=== PATIENT | female | born 1950 | race Caucasian/White ===

== ENCOUNTER → 2016-12-26 | Outpatient (CLI) | payer MEDICARE, OTHER ==
[~2016-12-26] MED LIST: ALBUTEROL0.09 MG/A1 INH; ASPIR LOW81 MG PO; ASPIRIN325 MG PO; BUMEX1 MG PO; BUMEX2 MG; BUPROPION ER100 M1 PO; CALCIUM 600600 M2 PO; DEMADEX20 M1 PO; FLEXERIL10 MG PO; FLUNISOLID0.025 MG/A NAS; IMDUR SA60 M1 PO; IMDUR30 MG; K-Dur 20MEQ20 MEQ; KEFLEX500 M1 PO; KEFLEX500 MG PO; LEXAPRO10 MG PO; LIPITOR80 MG; LISINOPRIL10 M1 PO; LISINOPRIL5 MG; LOPRESSOR25 MG PO; MELATONIN1 MG PO; MELATONIN3 M1 PO; MOTRIN800 MG PO; MUCINEX1200 M1 PO; NITROSTAT0.4 MG; OXYGEN NAS; PLAVIX75 MG; POTASSIUM20 MEQ PO; PREDNISONE10 MG PO; PREVACID30 M1; PROPRANOLOL HCL20 M1 PO; TOPROL XL25 MG; TRAZODONE100 MG PO; VITAMIN C500 MG; VITAMIN D1000 IU; XANAX0.5 MG; ZOCOR40 MG PO; [UNRECOGNIZED DRUG - OTHER] PO
== END | disposition home or self-care (01) ==
LOC: CARD 15:53
DX: R60.0 Localized edema (principal)

== ENCOUNTER 2017-01-11 13:13 | Emergency (ER) | payer MEDICARE, OTHER ==
[~2017-01-11] VITALS: Ht 157.4 cm; Wt 99.8 kg
== END 2017-01-11 14:51 | disposition home or self-care (01) ==
LOC: ED 13:13
DX: R04.0 Epistaxis (principal); Z98.890 Other specified postprocedural states; Z90.89 Acquired absence of other organs; Z79.82 Long term (current) use of aspirin; Z88.0 Allergy status to penicillin; Z88.2 Allergy status to sulfonamides; Z88.3 Allergy status to other anti-infective agents; Z88.1 Allergy status to other antibiotic agents; Z99.81 Dependence on supplemental oxygen

== ENCOUNTER → 2017-02-16 | Day surgery (SDC) | payer MEDICARE, OTHER ==
[~2017-02-16] VITALS: Ht 157.4 cm; Wt 102.1 kg
--- NOTE | ~2017-02-16 | O ---
[place], [place] OPERATIVE NOTE NAME: ALEE PABLO UNIT #: [id number] ROOM: DOCTOR: WYATT FELTON MD BIRTHDATE: [birth year] DOS: 02/16/2017 HISTORY OF PRESENT ILLNESS: The patient has presented with chief complaint of dysphagia, dyspepsia, undergoing investigation. ALLERGIES: CIPROFLOXACIN, PENICILLIN, ERYTHROMYCIN, VIBRAMYCIN, SULFA. PAST MEDICAL HISTORY: COPD, hypertension, hypercholesterolemia. PAST SURGICAL HISTORY: Cardiac catheterization x 2. PROCEDURE: Today's procedure, part of investigation is panendoscopy plus biopsy plus balloon dilation of esophagus. PREMEDICATION: Versed and Diprivan. SCOPE: Olympus forward-viewing gastroscope Q10 video. REPORT: After putting the patient in the left lateral position and after application of lubricant to the scope, the scope was introduced; thereafter, under direct visualization advanced to the length of esophagus without difficulty. Gastric pouch was entered. Duodenal bulb, second and third part within normal limit. Antritis and gastritis were noticed. Antrum was biopsied for H. pylori. Scope was withdrawn. A balloon size 20 was introduced into the gastric pouch and orally extracted. Minimal resistance was noticed. The patient tolerated the procedure well. IMPRESSION: Benign mild stricture of esophagus, status post balloon dilation to size 20; gastritis, status post biopsy. PLAN AND DISCUSSION: We are going to continue with Protonix 40 mg daily. Elevation of the head of the bed 6 inches all time. Abstinence from solid food ingestion 5 hours prior to retiring. Followup routinely with you in office, p.r.n. visit with us in GI Clinic, p.r.n. routine followup with you in office. I thank you very much again for your kind referral. [place], [place] OPERATIVE NOTE NAME: ALEE PABLO UNIT #: [id number] ROOM: DOCTOR: WYATT FELTON MD BIRTHDATE: [birth year] WYATT FELTON MD CM:OPRECORD:OPERATIVE NOTE [id number] CHRISTIE FELTON MD 02/16/17 5019 interface
[2017-02-16 11:20] VITALS: BP 129/75
[2017-02-16 12:05] VITALS: BP 102/46
[2017-02-16 12:20] VITALS: BP 113/48
[2017-02-16 12:35] VITALS: BP 118/77
== END | disposition home or self-care (01) ==
LOC: SDC 02-13 08:00
DX: K22.2 Esophageal obstruction (principal); K29.50 Unspecified chronic gastritis without bleeding; J44.9 Chronic obstructive pulmonary disease, unspecified; E78.00 Pure hypercholesterolemia, unspecified; I25.2 Old myocardial infarction; I10 Essential (primary) hypertension; I25.10 Atherosclerotic heart disease of native coronary artery without angina pectoris; Z95.818 Presence of other cardiac implants and grafts; Z83.3 Family history of diabetes mellitus; Z82.49 Family history of ischemic heart disease and other diseases of the circulatory system; Z98.890 Other specified postprocedural states

== ENCOUNTER → 2017-03-07 | Outpatient (CLI) | payer MEDICARE, OTHER ==
[~2017-03-07] MED LIST changes: +OMEPRAZOLE D/R20 MG PO; +SPIRIVA -- 3018 MCG INH
[2017-03-07 11:27] LABS: BASO % 0.6 % (0.0-1.0); EOS # 0.1 10*3/uL (0.0-0.4); EOS % 1.7 % (1.0-4.0); HEMATOCRIT 36.6 % (37.0-47.0); HEMOGLOBIN 11.8 g/dl (12.0-16.0); LYMPH # 2.5 10*3/uL (1.3-4.4); LYMPH % 33.7 % (27.0-41.0); MEAN CELL VOLUME 96.6 fl (81.0-99.0); MEAN CORPUSCULAR HGB 31.1 pg (27.0-31.0); MEAN CORPUSCULAR HGB CONC 32.2 g/dl (33.0-37.0); MONO # 0.7 10*3/uL (0.1-1.0); MONO % 9.9 % (3.0-9.0); NEUT # 3.9 10*3/uL (2.3-7.9); NEUT % 53.5 % (47.0-73.0); PLATELET COUNT AUTOMATED 181 10*3/uL (130-400); RED BLOOD COUNT 3.79 10*6/uL (4.10-5.10); RED CELL DISTRI WIDTH 13.3 % (0-14.5); WHITE BLOOD COUNT 7.3 10*3/uL (4.8-10.8)
[2017-03-07 11:49] LABS: INTERNATIONAL NORM RATIO 0.9 (2.0-3.5); PROTHROMBIN TIME 9.8 SECONDS (9.0-12.4)
== END | disposition home or self-care (01) ==
LOC: LAB 10:10
PROVIDERS: Specialist
DX: R04.0 Epistaxis (principal)

== ENCOUNTER → 2017-03-13 | Day surgery (SDC) | payer MEDICARE, OTHER ==
[2017-03-07 10:28] VITALS: BP 141/71
[~2017-03-13] VITALS: Ht 157.4 cm; Wt 102.1 kg
[~2017-03-13] MED LIST changes: +OCEAN104 ML NAS
--- NOTE | ~2017-03-13 | ZIPNASCAUT ---
[place], [place] ENDONASAL CAUTERY NAME: ALEE PABLO [facility] #: [id number] UNIT #: [id number] ROOM: DOCTOR: GABRIEL RUSSELL MD BIRTHDATE: [birth year] DATE: 03/13/17 PREOPERATIVE DIAGNOSIS: Recurrent right-sided epistaxis. POSTOPERATIVE DIAGNOSIS: Same. OPERATION: Right endonasal cautery. SURGEON: Dr. Russell. ANESTHESIA: General. HISTORY: Patient is taken to the operating room for control of epistaxis which was recurrent on the right side. OPERATIVE FINDINGS AND PROCEDURE: Following induction of general anesthesia, the patient was positioned supine on the OR table, prepped and draped in a standard sterile fashion. Examination of the right intranasal region showed hypervascularity of the right anterior septal region. This area was thermally cauterized using electrical cautery. The patient tolerate procedure well. The patient was awakened, extubated and transported to PACU in satisfactory condition. GABRIEL BALES MD CM:OPRECORD:ENDONASAL CAUTERY 5 5 GABRIEL RUSSELL MD 03/21/1747 KARYNA HUGHES.R
[2017-03-13 09:42] VITALS: BP 146/79
[2017-03-13 10:14] VITALS: BP 122/65
[2017-03-13 10:30] VITALS: BP 160/82
[2017-03-13 10:45] VITALS: BP 129/60
[2017-03-13 11:00] VITALS: BP 137/51
[2017-03-13 11:13] VITALS: BP 131/55
== END | disposition home or self-care (01) ==
LOC: SDC 03-07 10:15
DX: R04.0 Epistaxis (principal); J44.9 Chronic obstructive pulmonary disease, unspecified; I25.2 Old myocardial infarction; K21.9 Gastro-esophageal reflux disease without esophagitis; F32.9 Major depressive disorder, single episode, unspecified; I11.0 Hypertensive heart disease with heart failure; I50.9 Heart failure, unspecified; F41.9 Anxiety disorder, unspecified; E78.00 Pure hypercholesterolemia, unspecified; Z95.5 Presence of coronary angioplasty implant and graft; Z79.82 Long term (current) use of aspirin; Z79.899 Other long term (current) drug therapy; Z98.890 Other specified postprocedural states; Z88.0 Allergy status to penicillin; Z88.1 Allergy status to other antibiotic agents; Z88.2 Allergy status to sulfonamides; Z88.8 Allergy status to other drugs, medicaments and biological substances; Z82.49 Family history of ischemic heart disease and other diseases of the circulatory system

== ENCOUNTER → 2017-05-25 | Outpatient (CLI) | payer MEDICARE, OTHER ==
[2017-05-25 11:13] LABS: CREATININE 1.12 mg/dL (0.55-1.02)
== END | disposition home or self-care (01) ==
LOC: LAB 09:40 → CT 11:00
PROVIDERS: Radiology Diagnostic Radiology
DX: I71.9 Aortic aneurysm of unspecified site, without rupture (principal); K76.0 Fatty (change of) liver, not elsewhere classified; K22.8 Other specified diseases of esophagus

== ENCOUNTER → 2017-06-06 | Outpatient (CLI) | payer MEDICARE, OTHER | END | disposition home or self-care (01) | LOC: US 02:12 | DX: I71.4 Abdominal aortic aneurysm, without rupture (principal); Z87.891 Personal history of nicotine dependence ==

== ENCOUNTER → 2017-06-12 | Day surgery (SDC) | payer MEDICARE, OTHER ==
[~2017-06-12] VITALS: Ht 157.4 cm; Wt 103.4 kg
[~2017-06-12] MED LIST changes: +OMEPRAZOLE40 MG PO; -POTASSIUM20 MEQ PO; +POTASSIUM99 M5 PO; +TOPROL XL25 MG PO
[2017-06-12 07:30] VITALS: BP 153/81
[2017-06-12 09:10] VITALS: BP 123/61
[2017-06-12 09:25] VITALS: BP 134/71
[2017-06-12 09:37] VITALS: BP 142/70
== END ==
LOC: SDC 06-08 10:15
DX: K29.50 Unspecified chronic gastritis without bleeding (principal); I25.2 Old myocardial infarction; I11.0 Hypertensive heart disease with heart failure; J44.9 Chronic obstructive pulmonary disease, unspecified; E78.00 Pure hypercholesterolemia, unspecified; K21.9 Gastro-esophageal reflux disease without esophagitis; I50.9 Heart failure, unspecified; Z98.890 Other specified postprocedural states; Z95.5 Presence of coronary angioplasty implant and graft; Z82.49 Family history of ischemic heart disease and other diseases of the circulatory system

== ENCOUNTER → 2017-09-06 | Outpatient (CLI) | payer MEDICARE, OTHER ==
--- NOTE | ~2017-09-06 | SLPIE ---
[place], [place] PARKING LOT SIGNALER INITIAL EVALUATION NAME: ALEE PABLO UNIT #: [id number] ROOM: DOCTOR: CHRISTIE FOWLER CNP Speech Language Pathology Initial Evaluation Page 1 1 of Patient Name: ALEE PABLO Date: 09/06/2017 10:44 AM : 1950 SOC Date: 09/06/2017 [facility]: [facility] Provider #: [id number] Treating Clinician: DEVAN Turner-PARKING LOT SIGNALER Referring Physician: CHRISTIE FOWLER Patient Information Address: [address] [place] [address] Physician: CHRISTIE FOWLER Physician #: City, [facility], Zip: [place], [place] [address] Occupation: Unknown # of Approved Visits: 0 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 Please see Dapper for details. Rehabilitation Information / History Clinical Findings Functional Goals Functional Limitation Reporting Swallowing G8996 - Swallowing functional limitation, current status at therapy episode outset and at reporting intervals Current Status: CH - 0 percent impaired, limited or restricted G8997 - Swallowing functional limitation, projected goal status, at therapy episode outset, at reporting intervals, and at discharge or to end reporting Goal Status: CH - 0 percent impaired, limited or restricted G8998 - Swallowing functional limitation, discharge status, at discharge from therapy or to end reporting Discharge Status: CH - 0 percent impaired, limited or restricted 09/06/2017 3:21:10 PM DEVAN Turner-PARKING LOT SIGNALER Date/Time [place], [place] PARKING LOT SIGNALER INITIAL EVALUATION NAME: ALEE PABLO UNIT #: [id number] ROOM: DOCTOR: CHRISTIE FOWLER CNP State License #: [id number] CM:SLPIE 152 IS THERAPY [facility]
--- NOTE | ~2017-09-06 | SLPPOC ---
[place], [place] MOLD CLOSER PLAN OF CARE NAME: ALEE PABLO UNIT #: [id number] ROOM: DOCTOR: CHRISTIE FOWLER CNP Speech Language Pathology Plan of Care Page 1 1 (Initial Evaluation) of Patient Name: ALEE PABLO Date: 09/06/2017 10:44 AM : 1950 SOC Date: 09/06/2017 Provider: [facility] Provider #: [id number] Treating Clinician: DEVAN Turner-MOLD CLOSER Referring Physician: CHRISTIE FOWLER Medicare #: 1 [id number] Visits From SOC: Onset Date Description Code Primary Diagnosis: 09/06/2017 A000.00 DIAGNOSIS FROM INTERFACE NOT FOUND IN [facility] TABLE Subjective Comments: Initial evaluation created to initiate the electronic medical record. Please see imageloop for details. Initial Level Goals Functional Limitation Reporting Swallowing G8996 - Swallowing functional limitation, current status at therapy episode outset and at reporting intervals Current Status: CH - 0 percent impaired, limited or restricted G8997 - Swallowing functional limitation, projected goal status, at therapy episode outset, at reporting intervals, and at discharge or to end reporting Goal Status: CH - 0 percent impaired, limited or restricted G8998 - Swallowing functional limitation, discharge status, at discharge from therapy or to end reporting Discharge Status: CH - 0 percent impaired, limited or restricted 09/06/2017 3:21:10 PM CHRISTIE FOWLER Date/Time MAYRA Turner Date I certify the need for these services furnished under this plan of treatment while under my care. State License #: [id number] CM:SLPPOC [id number] IS THERAPY [place]
--- NOTE | ~2017-09-06 | PROC NOTE ---
[place], [place] PROCEDURE NOTE NAME: ALEE PABLO UNIT #: [id number] ROOM: DOCTOR: ELENA HARRINGTON BIRTHDATE: [birth year] DOS: 09/06/2017 ORDERING PHYSICIAN: Cate Roa NP. RADIOLOGIST: Dr. Petersen. BACKGROUND INFORMATION: The patient, a 67-year-old female, was seen for modified barium swallow. This test was ordered to view the pharyngeal phase of the swallow. The patient was alert and able to report her case history information. She reported that at times she feels that she has to concentrate to swallow in order to bring on the swallow. She reported her medical history significant for ND occurring in 2007, AAA, spots on the liver, lung nodules and COPD. The patient is oxygen dependent. She receives a regular diet and thin liquid. Oral peripheral examination revealed presence of top denture with adequate fit reported. She did display natural teeth on the bottom. Lingual, labial, buccal and laryngeal skills were within normal limits in terms of strength, range of motion, and coordination. METHODS AND MATERIALS USED FOR THE EXAM: The patient was positioned in the lateral plane and the examination was viewed under fluoroscopy. The patient was presented with a variety of consistencies to assess swallowing skills including applesauce mixed with barium presented in half teaspoon amounts, barium-coated cookie and bread given in bite size pieces and thin liquid barium taken by cup and barium pill to assess pill swallowing. ORAL PHASE: Unremarkable. PHARYNGEAL PHASE: Unremarkable. ESOPHAGEAL PHASE: This phase of the swallow was not formally assessed during this examination. Please refer to upper gastrointestinal completed earlier this date for further information. IMPRESSIONS AND RECOMMENDATIONS: Based upon assessment results, this 67-year-old patient presents with oral and pharyngeal swallowing skills that are within normal limits. No penetration, aspiration or residue occurred. Recommend the patient remain on present diet with use of safe swallow strategies such as alternating liquids and solids and consumption of small bites and sips. Follow up therapy is not warranted at this time. Results and recommendations were shared with the patient who verbalized understanding and agreement. Thank you very much for this referral. Should you have any questions regarding this patient, please contact the speech pathologist at [phone]. [place], [place] PROCEDURE NOTE NAME: ALEE PABLO UNIT #: [id number] ROOM: DOCTOR: ELENA HARRINGTON BIRTHDATE: [birth year] ELEAN HARRINGTON CM:PROCNOTE:PROCEDURE NOTE 1447 0002 ELENA HARRINGTON
--- NOTE | ~2017-09-06 | SLPPN ---
[place], [place] STUDENT SUPPORT COUNSELOR PROGRESS NOTE NAME: ALEE PABLO UNIT #: [id number] ROOM: DOCTOR: CHRISTIE FOWLER CNP Speech Language Pathology Treatment Note Page 1 1 of Patient Name: ALEE PABLO Date: 09/06/2017 11:00 AM : 1950 SOC Date: 09/06/2017 Provider: [facility] Provider #: [id number] Treating Clinician: DEVAN Turner-STUDENT SUPPORT COUNSELOR Referring Physician: CHRISTIE FOWLER Onset Date Description Code Primary Diagnosis: 09/06/2017 A000.00 DIAGNOSIS FROM INTERFACE NOT FOUND IN [facility] TABLE Time In: 10:00 AM Time Out: 11:00 AM STUDENT SUPPORT COUNSELOR Interventions and CPT Codes Consisted of: CPT Code Modifiers Minutes Units MOTION FLUOROSCOPY/SWALLOW 35402 60 1 Total Minutes: 60 Total Timed Minutes: 0 Total Untimed Minutes: 60 Total Units: 1 Total Timed Units: 0 Total Untimed Units: 1 09/06/2017 3:26:58 PM DEVAN Turner-KASSANDRA Date/Time State License #: [id number] CM:KASSANDRAPN 1530 1529 IS THERAPY [place]
--- NOTE | 2017-09-06 10:46 | NUR ---
SPEECH PATHOLOGY Modified barium swallow completed as per orders. Patient was alert and cooperative and reported hx significant for OR (2008), AAA, lung nodules and COPD. Patient is O2 dependent. She reported that at times she has to concentrate to swallow. Patient just completed an upper GI. Results of the study revealed oral and pharyngeal swallowing skills WNL. No penetration, aspiration or residue occurred. Recommend she remain on present diet with use of safe swallow strategies such as alternating liquids and solids and consumption of small bites and sips. Follow up t herapy is not warranted at this time. Results and migel. were shared with patient and she verbalized understanding and agreement. Dictaed report to follow. Thank you for this referral. ELENA HARRINGTON MSCCC-BOW MAKER PRODUCTION
== END | disposition home or self-care (01) ==
LOC: RAD 09:00 → RAD/SH 09:13
DX: K29.70 Gastritis, unspecified, without bleeding (principal)

== ENCOUNTER 2020-06-09 08:50 | Emergency (ER) | payer MEDICARE, OTHER ==
[~2020-06-09] VITALS: Ht 157.4 cm; Wt 108.9 kg
[2020-06-09 09:36] LABS: BASO % 0.2 % (0.0-1.0); EOS % 0.2 % (1.0-4.0); HEMATOCRIT 41.8 % (37.0-47.0); LYMPH # 0.6 10*3/uL (1.3-4.4); LYMPH % 7.7 % (27.0-41.0); MEAN CORPUSCULAR HGB 30.6 pg (27.0-31.0); MEAN CORPUSCULAR HGB CONC 32.3 g/dl (33.0-37.0); MEAN PLATELET VOLUME 9.2 fl (9.6-12.3); MONO # 0.5 10*3/uL (0.1-1.0); NEUT % 85.2 % (47.0-73.0); PLATELET COUNT AUTOMATED 178 10*3/uL (130-400); RED BLOOD COUNT 4.41 10*6/uL (4.10-5.10); RED CELL DISTRI WIDTH 13.6 % (0-14.5); WHITE BLOOD COUNT 8.2 10*3/uL (4.8-10.8)
[2020-06-09 09:40] LABS: ALBUMIN 3.9 gm/dl (3.1-4.5); CREATININE 1.37 mg/dL (0.55-1.02); POTASSIUM 3.9 mmol/L (3.5-5.1); TOTAL PROTEIN 7.8 gm/dL (6.4-8.2)
[2020-06-09 09:44] LABS: INTERNATIONAL NORM RATIO 0.9 (2.0-3.5)
[2020-06-09 09:47] LABS: TROPONIN I 0.338 ng/ml (<0.045)
[2020-06-09 09:55] LABS: MEAN CELL VOLUME 94.8 fl (81.0-99.0)
[2020-06-09 10:33] LABS: BILIRUBIN NEGATIVE; BLOOD NEGATIVE (NEGATIVE); CLARITY CLEAR (CLEAR); COLOR YELLOW (YELLOW); GLUCOSE NEGATIVE; KETONE NEGATIVE; LEUKO ESTERASE NEGATIVE (NEGATIVE); NITRITE NEGATIVE (NEGATIVE); SPECIFIC GRAVITY < 1.005 (1.001-1.030); UROBILINOGEN 0.2 E.U./dl (0.0-1.0)
[2020-06-09 12:30] LABS: TROPONIN I 0.709 ng/ml (<0.045)
== END 2020-06-09 13:31 | disposition short-term general hospital (02) ==
LOC: ED 08:50
PROVIDERS: Emergency Medicine; Physician Assistant
DX: I21.4 Non-ST elevation (NSTEMI) myocardial infarction (principal); Z88.0 Allergy status to penicillin; Z88.2 Allergy status to sulfonamides; Z88.1 Allergy status to other antibiotic agents; Z88.8 Allergy status to other drugs, medicaments and biological substances; Z79.899 Other long term (current) drug therapy; Z79.82 Long term (current) use of aspirin

== ENCOUNTER → 2020-07-09 | Outpatient (CLI) | payer MEDICARE, OTHER | END | disposition home or self-care (01) | LOC: US 11:00 | PROVIDERS: ATTEND Nurse Practitioner Family | DX: I21.4 Non-ST elevation (NSTEMI) myocardial infarction (principal); N17.9 Acute kidney failure, unspecified; I71.4 Abdominal aortic aneurysm, without rupture; Z79.899 Other long term (current) drug therapy ==

== ENCOUNTER 2020-08-25 15:14 | Inpatient (IN) | payer MEDICARE, OTHER ==
[~2020-08-25] VITALS: Ht 157.4 cm; Wt 102.3 kg
[2020-08-25] VITALS (14 sets, daily range): BP systolic 97–143; BP diastolic 23–68
[2020-08-25 16:06] LABS: BASO % 0.3 % (0.0-1.0); EOS % 0.6 % (1.0-4.0); LYMPH # 1.2 10*3/uL (1.3-4.4); LYMPH % 35.8 % (27.0-41.0); MEAN CELL VOLUME 96.3 fl (81.0-99.0); MEAN CORPUSCULAR HGB 30.6 pg (27.0-31.0); MEAN CORPUSCULAR HGB CONC 31.8 g/dl (33.0-37.0); MONO # 0.4 10*3/uL (0.1-1.0); MONO % 11.9 % (3.0-9.0); NEUT # 1.7 10*3/uL (2.3-7.9); NEUT % 51.1 % (47.0-73.0); PLATELET COUNT AUTOMATED 127 10*3/uL (130-400); RED BLOOD COUNT 4.05 10*6/uL (4.10-5.10); RED CELL DISTRI WIDTH 13.9 % (0-14.5); WHITE BLOOD COUNT 3.4 10*3/uL (4.8-10.8)
[2020-08-25 16:27] LABS: ALBUMIN 3.9 gm/dl (3.1-4.5); CREATININE 1.38 mg/dL (0.55-1.02); POTASSIUM 3.4 mmol/L (3.5-5.1); TOTAL PROTEIN 7.7 gm/dL (6.4-8.2)
[2020-08-25 18:01] LABS: ABG BASE EXCESS -0.4 mmol/L (-2.0-2.0); ARTERIAL BLOOD GAS PH 7.392 (7.35-7.45)
[2020-08-25 18:07] LABS: CPK 116 U/L (26-192); LDH 232 U/L (84-246)
[2020-08-26] VITALS (7 sets, daily range): BP systolic 130–156; BP diastolic 64–84
--- NOTE | 2020-08-26 03:15 | NUR ---
REPORT RECEIVED FROM JUAN M RIOJAS AT THIS TIME.
[2020-08-26 05:59] LABS: ALBUMIN 3.6 gm/dl (3.1-4.5); CREATININE 1.15 mg/dL (0.55-1.02); TOTAL PROTEIN 7.8 gm/dL (6.4-8.2)
[2020-08-26 06:02] LABS: POTASSIUM 4.6 mmol/L (3.5-5.1)
[2020-08-26 06:14] LABS: HEMATOCRIT 37.4 % (37.0-47.0); MEAN CELL VOLUME 95.9 fl (81.0-99.0); MEAN CORPUSCULAR HGB 31.3 pg (27.0-31.0); MEAN CORPUSCULAR HGB CONC 32.6 g/dl (33.0-37.0); MEAN PLATELET VOLUME 9.7 fl (9.6-12.3); PLATELET COUNT AUTOMATED 145 10*3/uL (130-400)
[2020-08-26 06:21] LABS: WHITE BLOOD COUNT 1.3 10*3/uL (4.8-10.8)
[2020-08-26 06:58] LABS: ATYPICAL LYMPHS 1 % (0-0); PLATELET SUFFICIENCY NORMAL (NORMAL); TOTAL CELLS COUNTED 100 #CELLS
--- NOTE | 2020-08-26 07:40 | NUR ---
PT RESTING WITH EYES CLOSED, SEE VITAL FOR MORE DETAILS, RUNNING BREAKFAST TRAY WILL BE ORDERED.
--- NOTE | 2020-08-26 08:30 | NUR ---
PT IS WAKE AND HAS NO CONPLAINTS. FREAS WATER, LINES, TOOTH BRUSH WITH PASTE, BODY WASH ECT ALL PROVIDED.
--- NOTE | 2020-08-26 11:30 | NUR ---
PT PULLED OUT IV, NEW IV ESTABLISED IN THE JAY .
--- NOTE | 2020-08-26 12:41 | NUR ---
DR ABREU TO ER TO ROUND ON IN PT'S, NOTIFIED OF PT REQUEST FOR SLEEPING PILL AND ANXIETY MEDICATION.
--- NOTE | 2020-08-26 13:31 | NUR ---
REPORT RECIEVED FROM CAMILLA MCGOWAN
--- NOTE | 2020-08-26 16:59 | NUR ---
PT IN BED STATES SHE IS FEELING ANXIOUS PT HAS STANDING PRN ORDER FOR XANAX
--- NOTE | 2020-08-26 22:00 | NUR ---
A 70, admitted to , under the services of JENNIFER Busby DO with a diagnosis of CHF, SUSPECTED COVID. Chief complaint is DIARRHEA, HEADACHE, COUGH, SHORTNESS OF BREATH X1 WEEK. Patient arrived via bed from ER. Monitor applied. Initial assessment completed. Vital signs taken and recorded. JENNIFER BUSBY DO notified of admission to the unit. Orders received. See assessment for past medical history, medications and allergies. Patient and/or family oriented to unit. [address] visitation policy reviewed. Clothing/patient valuable form completed. IRIS ALMAGUER
--- NOTE | 2020-08-26 23:15 | NUR ---
SPOKE WITH DR. NGUYEN ABOUT SWITCHING RESTORIL TO PATIENTS TRAZADONE. THAT WAS THE ONLY MEDICATION THAT THE PATIENT WAS SURE ABOUT. DISCUSSED THIS WITH DR. NGUYEN AND NOTIFIED HIM THAT THE PATIENT STATED WE SHOULD BE ABLE TO GET THE FULL MED LIST FROM [facility] TOMORROW. ALSO NOTIFIED HIM THAT THE PATIENT STATED THAT HER LASIX WOULD BE DISCONTINUED PER ANOTHER DOCTOR. HE STATED HE WILL DISCUSS THAT WITH THE DAYTIME DOCTORS.
--- NOTE | 2020-08-27 02:22 | NUR ---
24 HR chart check completed.
--- NOTE | 2020-08-27 06:23 | NUR ---
DR. NGUYEN NOTIFIED OF PATIENTS EXERTIONAL TACHYCARDIA OF 140'S-150'S
[2020-08-27 06:37] LABS: BASO % 0.3 % (0.0-1.0); EOS % 0.3 % (1.0-4.0); HEMATOCRIT 37.8 % (37.0-47.0); LYMPH % 32.7 % (27.0-41.0); MEAN CELL VOLUME 95.9 fl (81.0-99.0); MEAN CORPUSCULAR HGB 30.7 pg (27.0-31.0); MEAN PLATELET VOLUME 9.6 fl (9.6-12.3); MONO # 0.5 10*3/uL (0.1-1.0); MONO % 15.4 % (3.0-9.0); NEUT # 1.6 10*3/uL (2.3-7.9); NEUT % 50.7 % (47.0-73.0); PLATELET COUNT AUTOMATED 164 10*3/uL (130-400); RED BLOOD COUNT 3.94 10*6/uL (4.10-5.10); WHITE BLOOD COUNT 3.1 10*3/uL (4.8-10.8)
[2020-08-27 06:55] LABS: ALBUMIN 3.6 gm/dl (3.1-4.5); CREATININE 1.23 mg/dL (0.55-1.02); POTASSIUM 3.7 mmol/L (3.5-5.1); TOTAL PROTEIN 7.4 gm/dL (6.4-8.2)
[2020-08-27 08:00] VITALS: BP 127/58
--- NOTE | 2020-08-27 09:15 | NUR ---
Attempted to reach patient via phone with no success. Reached out to , [facility]. Patient states lives at home with her . There are 0 steps in the home. Physician: Cate Rao Pharmacy: [facility] Home health services: none Patient's level of ADLs: INDEPENDENT Patient has working utilities: yes DME: O2 @ 3L nc, portable O2 tanks, nebulizer, O2 supplier [employer], life vest Follow-up physician's appointment after d/c: will be made by the hospitalist nurse director upon discharge Does patient want to access PORTAL?: no Discharge plan discussed with . Patient lives at home with him. She is normally independent in her ADLs and ambulation. Discussed short term rehab and he declines. Discussed home health care services and he declines at this time. He would like to see how she progresses while in the hospital. When medically stable she will be discharged to home. He states he will provide transportation on discharge. SHINE CRAWFORD
[2020-08-27] MEDS ORDERED: VITAMIN B122500 MCG PO (09:43)
[2020-08-27] MEDS ORDERED: VENTOLIN 02.5 MG/3 M INH (09:44)
[2020-08-27] MEDS ORDERED: VITAMIN D3125 MC1 PO (09:44)
[2020-08-27] MEDS ORDERED: PROTONIX40 MG PO (09:45)
[2020-08-27] MEDS ORDERED: MELATONIN3 MG PO (09:45)
[2020-08-27] MEDS ORDERED: ISOSORBIDE30 MG PO (09:46)
[2020-08-27] MEDS ORDERED: HYDROXYZINE HCL25 MG PO (09:46)
[2020-08-27] MEDS ORDERED: POTASSIUM CHLO20 ME3 PO (09:46)
[2020-08-27] MEDS ORDERED: ZOCOR80 MG PO (09:47)
[2020-08-27] MEDS ORDERED: Lopressor25 MG PO (09:47)
[2020-08-27] MEDS ORDERED: Wellbutrin Sr100 MG PO (09:48)
[2020-08-27] MEDS ORDERED: TORSEMIDE20 MG PO (09:48)
[2020-08-27] MEDS ORDERED: PLAVIX75 M1 PO (09:49)
[2020-08-27] MEDS ORDERED: ZYRTEC10 M3 PO (09:49)
--- NOTE | 2020-08-27 09:49 | NUR ---
MED REC VERIFIED WITH CHRISTIE FOWLER'S OFFICE.
--- NOTE | 2020-08-27 09:50 | NUR ---
NOTIFIED OF UPDATED MED REC & PATIENT'S HEARTRATE 130'S-140'S.
[2020-08-27 10:29] LABS: ABG BASE EXCESS -0.4 mmol/L (-2.0-2.0); ARTERIAL BLOOD GAS PH 7.42 (7.35-7.45)
[2020-08-27 12:00] VITALS: BP 112/69
--- NOTE | 2020-08-27 13:52 | NUR ---
Spoke to , [facility], regarding discharge planning. Discussed the physicians said she could be possibly discharged within the next 24-48 hours depending on how she progresses. He verbalized an understanding.
[2020-08-27 16:00] VITALS: BP 115/56
--- NOTE | 2020-08-27 19:45 | NUR ---
PATIENT RESTING IN BED. CO DIARRHEA AND A SLIGHT HEADACHE. DENIES ANY OTHER COMPLAINTS. ASSESSMENT COMPLETE. RESPS EASY AND REGULAR. 3L NC IN PLACE. CALL LIGHT WITHIN REACH.
[2020-08-27 20:00] VITALS: BP 144/74
--- NOTE | 2020-08-27 20:51 | NUR ---
MEDICATED WITH PRN TYLENOL FOR CO A HEADACHE. WILL ASSESS EFFECTIVENESS.
--- NOTE | 2020-08-27 20:52 | NUR ---
MEDICATED WITH PRN IMMODIUM FOR CO DIARRHEA.
--- NOTE | 2020-08-27 21:51 | NUR ---
TYLENOL EFFECTIVE PER PATIENT.
[2020-08-28] VITALS: BP 138/71
--- NOTE | 2020-08-28 00:01 | NUR ---
24 HR chart check completed.
[2020-08-28 06:20] LABS: ALBUMIN 3.7 gm/dl (3.1-4.5); CREATININE 1.14 mg/dL (0.55-1.02); POTASSIUM 3.8 mmol/L (3.5-5.1); TOTAL PROTEIN 7.9 gm/dL (6.4-8.2)
[2020-08-28 06:40] LABS: HEMATOCRIT 38.9 % (37.0-47.0); MEAN CORPUSCULAR HGB 30.9 pg (27.0-31.0); MEAN CORPUSCULAR HGB CONC 32.1 g/dl (33.0-37.0); MEAN PLATELET VOLUME 9.7 fl (9.6-12.3); PLATELET COUNT AUTOMATED 162 10*3/uL (130-400); RED BLOOD COUNT 4.05 10*6/uL (4.10-5.10); RED CELL DISTRI WIDTH 14.2 % (0-14.5)
[2020-08-28 06:43] LABS: WHITE BLOOD COUNT 1.8 10*3/uL (4.8-10.8)
--- NOTE | 2020-08-28 06:43 | NUR ---
CALLED DR. NGUYEN FOR WBC OF 1.8.
[2020-08-28 07:31] LABS: ATYPICAL LYMPHS 2 % (0-0); PLATELET SUFFICIENCY NORMAL (NORMAL); TOTAL CELLS COUNTED 100 #CELLS
[2020-08-28 08:00] VITALS: BP 119/66
--- NOTE | 2020-08-28 08:00 | NUR ---
PT AWAKE, ALERT AND ORIENTED SITTING UP IN BED. NO STATED COMPLAINTS AT THIS TIME. NASAL CANNULA INTACT. RESPIRATIONS ARE EASY AND REGULAR, NO SOB NOTED AT REST. PT ABLE TO REPOSITION SELF AND IS ENCOURAGED TO DO SO. BED IN LOWEST LOCKED POSITION AND CALL LIGHT WITHIN REACH. WILL CONTINUE TO MONITOR.
--- NOTE | 2020-08-28 09:30 | NUR ---
PT REQUESTED AND RECEIEVED PRN TYLENOL AND IMMODIUM AT THIS TIME. PT COMPLAINS OF ALL OVER ACHES THIS MORNING STATING SHE JUST FEELS "BLAH'. PT ALSO COMPLAINS OF DIARRHEA. PRN IMMOIDUM ADMINISTERED AT THIS TIME. WILL MONITOR FOR EFFECTIVENESS.
[2020-08-28] MEDS ORDERED: DECADRON6 M1 PO (11:29)
[2020-08-28 12:00] VITALS: BP 134/67; BP 97/64
--- NOTE | 2020-08-28 14:05 | NUR ---
Discharge instructions reviewed with patient/family. Patient receptive and verbalizes understanding. Follow-up care arranged. Written instructions given to patient/family. VALENTIN BRISENO
== END 2020-08-28 14:05 | disposition home or self-care (01) | DRG 177 ==
LOC: ED 15:14 → EDHOLD 16:42 → 4E 16:42
PROVIDERS: Internal Medicine; Nurse Practitioner Family; Student in an Organized Health Care Education/Training Program; ADMIT Internal Medicine; ATTEND Internal Medicine
PROC: 5A0935A Assistance with Respiratory Ventilation, Less than 24 Consecutive Hours, High Flow/Velocity Cannula (ICD-10-PCS; principal; 2020-08-25)
DX: U07.1 COVID-19 (principal); I50.23 Acute on chronic systolic (congestive) heart failure; N17.0 Acute kidney failure with tubular necrosis; J12.89 Other viral pneumonia; I13.0 Hypertensive heart and chronic kidney disease with heart failure and stage 1 through stage 4 chronic kidney disease, or unspecified chronic kidney disease; J44.0 Chronic obstructive pulmonary disease with (acute) lower respiratory infection; E44.1 Mild protein-calorie malnutrition; Z68.41 Body mass index [BMI] 40.0-44.9, adult; I25.10 Atherosclerotic heart disease of native coronary artery without angina pectoris; F41.1 Generalized anxiety disorder; K21.9 Gastro-esophageal reflux disease without esophagitis; F32.9 Major depressive disorder, single episode, unspecified; D70.9 Neutropenia, unspecified; E83.39 Other disorders of phosphorus metabolism; E87.6 Hypokalemia; D69.6 Thrombocytopenia, unspecified; R00.0 Tachycardia, unspecified; E78.5 Hyperlipidemia, unspecified; E66.01 Morbid (severe) obesity due to excess calories; N18.32 Chronic kidney disease, stage 3b; Z88.0 Allergy status to penicillin; Z88.8 Allergy status to other drugs, medicaments and biological substances; Z88.2 Allergy status to sulfonamides; Z95.5 Presence of coronary angioplasty implant and graft; Z82.49 Family history of ischemic heart disease and other diseases of the circulatory system; Z95.810 Presence of automatic (implantable) cardiac defibrillator; Z99.81 Dependence on supplemental oxygen; I25.2 Old myocardial infarction; Z87.891 Personal history of nicotine dependence; Z79.899 Other long term (current) drug therapy; Z79.82 Long term (current) use of aspirin

== ENCOUNTER 2021-09-09 17:20 | Emergency (ER) | payer MEDICARE, OTHER ==
[~2021-09-09] VITALS: Wt 113.4 kg
[~2021-09-09 17:20] MED LIST changes: +DECADRON6 M1 PO; +HYDROXYZINE HCL25 MG PO; +ISOSORBIDE30 MG PO; +Lopressor25 MG PO; +MELATONIN3 MG PO; +PLAVIX75 M1 PO; +POTASSIUM CHLO20 ME3 PO; +PROTONIX40 MG PO; +TORSEMIDE20 MG PO; +VENTOLIN 02.5 MG/3 M INH; +VITAMIN B122500 MCG PO; +VITAMIN D3125 MC1 PO; +Wellbutrin Sr100 MG PO; +ZOCOR80 MG PO; +ZYRTEC10 M3 PO
[2021-09-09 17:42] LABS: BASO % 0.3 % (0.0-1.0); EOS # 0.1 10*3/uL (0.0-0.4); EOS % 0.9 % (1.0-4.0); HEMATOCRIT 37.3 % (37.0-47.0); LYMPH % 31.3 % (27.0-41.0); MEAN CELL VOLUME 101.4 fl (81.0-99.0); MEAN CORPUSCULAR HGB 32.6 pg (27.0-31.0); MEAN CORPUSCULAR HGB CONC 32.2 g/dl (33.0-37.0); MEAN PLATELET VOLUME 9.4 fl (9.6-12.3); MONO # 0.6 10*3/uL (0.1-1.0); MONO % 8.6 % (3.0-9.0); NEUT # 3.8 10*3/uL (2.3-7.9); NEUT % 57.8 % (47.0-73.0); PLATELET COUNT AUTOMATED 163 10*3/uL (130-400); RED BLOOD COUNT 3.68 10*6/uL (4.10-5.10); WHITE BLOOD COUNT 6.5 10*3/uL (4.8-10.8)
[2021-09-09 17:59] LABS: ALBUMIN 3.7 gm/dl (3.1-4.5); CREATININE 1.15 mg/dL (0.55-1.02); POTASSIUM 4.6 mmol/L (3.5-5.1); TOTAL PROTEIN 7.4 gm/dL (6.4-8.2)
== END 2021-09-09 20:13 | disposition home or self-care (01) ==
LOC: ED 17:20
PROVIDERS: Emergency Medicine
DX: R07.9 Chest pain, unspecified (principal)

== ENCOUNTER → 2021-10-20 | Outpatient (CLI) | payer MEDICARE, OTHER | END | disposition home or self-care (01) | LOC: RAD 13:20 | PROVIDERS: ATTEND Nurse Practitioner Family | DX: J44.1 Chronic obstructive pulmonary disease with (acute) exacerbation (principal); I10 Essential (primary) hypertension; J02.9 Acute pharyngitis, unspecified; G47.00 Insomnia, unspecified; R05.9 Cough, unspecified; R51.9 Headache, unspecified ==

== ENCOUNTER → 2022-02-01 | Outpatient (CLI) | payer MEDICARE, OTHER | END | disposition home or self-care (01) | LOC: CARD 08:22 | PROVIDERS: ATTEND Internal Medicine Cardiovascular Disease | DX: I35.0 Nonrheumatic aortic (valve) stenosis (principal); I25.5 Ischemic cardiomyopathy; I25.10 Atherosclerotic heart disease of native coronary artery without angina pectoris; I50.22 Chronic systolic (congestive) heart failure ==

== ENCOUNTER → 2022-03-23 | Outpatient (CLI) | payer MEDICARE, OTHER ==
[~2022-03-23] MED LIST changes: +24 HOUR ALLER15.8 ML NAS; -FLUNISOLID0.025 MG/A NAS; -MELATONIN3 MG PO; +MELATONIN5 M7 PO; +PREVAGEN PO
== END | disposition home or self-care (01) ==
LOC: CARD 00:05
PROVIDERS: ATTEND Internal Medicine Cardiovascular Disease
DX: I25.10 Atherosclerotic heart disease of native coronary artery without angina pectoris (principal); I50.22 Chronic systolic (congestive) heart failure; R53.83 Other fatigue

== ENCOUNTER → 2022-10-11 | Outpatient (CLI) | payer MEDICARE, OTHER | END | disposition home or self-care (01) | LOC: RAD 01:27 | PROVIDERS: ATTEND Nurse Practitioner Family | DX: J98.09 Other diseases of bronchus, not elsewhere classified (principal); J02.9 Acute pharyngitis, unspecified; I51.7 Cardiomegaly ==

== ENCOUNTER → 2022-11-23 | Outpatient (CLI) | payer MEDICARE, OTHER ==
[2022-11-23 11:11] LABS: HEMATOCRIT 33.2 % (37.0-47.0); MEAN CELL VOLUME 106.1 fl (81.0-99.0); MEAN CORPUSCULAR HGB 32.6 pg (27.0-31.0); MEAN CORPUSCULAR HGB CONC 30.7 g/dl (33.0-37.0); MEAN PLATELET VOLUME 8.9 fl (9.6-12.3); PLATELET COUNT AUTOMATED 119 10*3/uL (130-400); RED BLOOD COUNT 3.13 10*6/uL (4.10-5.10); RED CELL DISTRI WIDTH 14.5 % (0-14.5); WHITE BLOOD COUNT 5.3 10*3/uL (4.8-10.8)
[2022-11-23 11:12] LABS: MANUAL DIFF REFLEX YES
[2022-11-23 11:36] LABS: ATYPICAL LYMPHS 1 % (0-0); TOTAL CELLS COUNTED 100 #CELLS
[2022-11-23 11:37] LABS: OVALOCYTES FEW; PLATELET SUFFICIENCY LOW (NORMAL); POLYCHROMASIA SLIGHT; VACUOLATION OF NEUTROPHILS SLIGHT
[2022-11-23 11:49] LABS: POTASSIUM 4.2 mmol/L (3.4-5.1); TOTAL PROTEIN 6.3 gm/dL (6.0-8.0)
== END | disposition home or self-care (01) ==
LOC: LAB 10:31
PROVIDERS: ATTEND Nurse Practitioner Family
DX: J44.1 Chronic obstructive pulmonary disease with (acute) exacerbation (principal); I10 Essential (primary) hypertension; F32.9 Major depressive disorder, single episode, unspecified

== ENCOUNTER → 2022-12-22 | Outpatient (CLI) | payer MEDICARE, OTHER ==
[2022-12-22 10:31] LABS: HEMATOCRIT 34.2 % (37.0-47.0); MEAN CELL VOLUME 105.6 fl (81.0-99.0); MEAN CORPUSCULAR HGB CONC 32.2 g/dl (33.0-37.0); MEAN PLATELET VOLUME 9.5 fl (9.6-12.3); PLATELET COUNT AUTOMATED 140 10*3/uL (130-400); RED BLOOD COUNT 3.24 10*6/uL (4.10-5.10); RED CELL DISTRI WIDTH 14.7 % (0-14.5); WHITE BLOOD COUNT 6.5 10*3/uL (4.8-10.8)
[2022-12-22 11:06] LABS: FREE T4 1.02 ng/dl (0.89-1.76); POTASSIUM 3.9 mmol/L (3.4-5.1); T3 UPTAKE 21.6 % (22.4-36.7); THYROID STIM HORMONE (HS) 3.305 uIU/ml (0.550-4.780)
[2022-12-22 11:09] LABS: MANUAL DIFF REFLEX YES
[2022-12-22 11:12] LABS: ATYPICAL LYMPHS 1 % (0-0); BASOPHILS 2 % (0-1); TOTAL CELLS COUNTED 100 #CELLS
[2022-12-22 11:13] LABS: OVALOCYTES FEW; PLATELET SUFFICIENCY NORMAL (NORMAL); POLYCHROMASIA SLIGHT; ROULEAUX SLIGHT
[2022-12-23 05:06] LABS: HAPTOGLOBIN 157 mg/dL (42-346)
[2022-12-23 07:06] LABS: HEPATITIS B SURFACE AG Negative (Negative)
[2022-12-26 00:06] LABS: ZINC, PLASMA 68 ug/dL (44-115)
[2022-12-27 00:06] LABS: METHYLMALONIC ACID 195 nmol/L (0-378)
== END | disposition home or self-care (01) ==
LOC: LAB 01:12 → TELEHEALTH 01:12
PROVIDERS: ATTEND Internal Medicine
DX: N18.30 Chronic kidney disease, stage 3 unspecified (principal); D63.1 Anemia in chronic kidney disease; D53.9 Nutritional anemia, unspecified; I10 Essential (primary) hypertension; Z88.0 Allergy status to penicillin; Z88.8 Allergy status to other drugs, medicaments and biological substances; Z79.899 Other long term (current) drug therapy

== ENCOUNTER → 2023-01-05 | Outpatient (CLI) | payer MEDICARE, OTHER | END | disposition home or self-care (01) | LOC: TELEHEALTH 00:18 | PROVIDERS: ATTEND Internal Medicine | DX: D53.9 Nutritional anemia, unspecified (principal); N18.30 Chronic kidney disease, stage 3 unspecified; D63.1 Anemia in chronic kidney disease; D72.821 Monocytosis (symptomatic); D72.820 Lymphocytosis (symptomatic); Z88.0 Allergy status to penicillin; Z88.8 Allergy status to other drugs, medicaments and biological substances; Z79.899 Other long term (current) drug therapy ==

== ENCOUNTER → 2023-03-23 | Outpatient (CLI) | payer MEDICARE, OTHER ==
[2023-03-24 08:09] LABS: THYROID PEROXIDASE (TPO) AB <9 IU/mL (0-34)
[2023-03-26 17:06] LABS: THYROGLOBULIN ANTIBODY <1.0 IU/mL (0.0-0.9)
== END | disposition home or self-care (01) ==
LOC: LAB 00:22
PROVIDERS: ATTEND Nurse Practitioner Primary Care
DX: M16.12 Unilateral primary osteoarthritis, left hip (principal); M17.12 Unilateral primary osteoarthritis, left knee; R79.89 Other specified abnormal findings of blood chemistry; I10 Essential (primary) hypertension

== ENCOUNTER 2023-10-29 17:23 | Emergency (ER) | payer MEDICARE, OTHER ==
[~2023-10-29] VITALS: Wt 117.9 kg
[2023-10-29] MEDS ORDERED: SODIUM CHLORIDE 0.9% 1,000 ML IV ONE (17:50)
[2023-10-29] MEDS ORDERED: SODIUM CHLORIDE 0.9% 1,000 ML IV SCH (17:55)
[2023-10-29 17:58] LABS: HEMATOCRIT 33.8 % (37.0-47.0); MEAN CELL VOLUME 106.6 fl (81.0-99.0); MEAN CORPUSCULAR HGB 34.1 pg (27.0-31.0); MEAN PLATELET VOLUME 10.2 fl (9.6-12.3); PLATELET COUNT AUTOMATED 133 10*3/uL (130-400); RED BLOOD COUNT 3.17 10*6/uL (4.10-5.10); RED CELL DISTRI WIDTH 14.6 % (0-14.5); WHITE BLOOD COUNT 13.3 10*3/uL (4.8-10.8)
[2023-10-29 18:07] LABS: ACT PARTIAL THROMBO TIME 29.6 SECONDS (20.0-32.1)
[2023-10-29 18:16] LABS: MANUAL DIFF REFLEX YES
[2023-10-29 18:24] LABS: POTASSIUM 3.5 mmol/L (3.4-5.1); TOTAL PROTEIN 7.6 gm/dL (6.0-8.0)
[2023-10-29 18:30] LABS: OVALOCYTES FEW; PLATELET SUFFICIENCY NORMAL (NORMAL); STOMATOCYTE FEW; TOTAL CELLS COUNTED 100 #CELLS
[2023-10-29] MEDS ORDERED: ASPIRIN, CHEWABLE 81 MG TAB PO ONE (18:35)
[2023-10-29] MEDS ORDERED: HEPARIN SODIUM 250 ML IV SCH (18:35)
[2023-10-29] MEDS ORDERED: Metoprolol Tartrate 25 MG TAB PO ONE (18:35)
== END 2023-10-29 20:46 | disposition short-term general hospital (02) ==
LOC: ED 17:23
PROVIDERS: Emergency Medicine
DX: I21.4 Non-ST elevation (NSTEMI) myocardial infarction (principal); J44.9 Chronic obstructive pulmonary disease, unspecified; I50.9 Heart failure, unspecified; I13.0 Hypertensive heart and chronic kidney disease with heart failure and stage 1 through stage 4 chronic kidney disease, or unspecified chronic kidney disease; I25.2 Old myocardial infarction; E78.00 Pure hypercholesterolemia, unspecified; K21.9 Gastro-esophageal reflux disease without esophagitis; N18.9 Chronic kidney disease, unspecified; Z88.0 Allergy status to penicillin; Z88.2 Allergy status to sulfonamides; Z88.1 Allergy status to other antibiotic agents; Z88.8 Allergy status to other drugs, medicaments and biological substances; Z98.890 Other specified postprocedural states; Z95.5 Presence of coronary angioplasty implant and graft; Z87.891 Personal history of nicotine dependence

== ENCOUNTER → 2023-12-07 | Outpatient (CLI) | payer MEDICARE, OTHER ==
[~2023-12-07] MED LIST changes: +PREDNISONE20 M1 PO
== END | disposition home or self-care (01) ==
LOC: RAD 01:45
PROVIDERS: ATTEND Nurse Practitioner Primary Care
DX: J43.9 Emphysema, unspecified (principal); J18.9 Pneumonia, unspecified organism

== ENCOUNTER 2023-12-10 16:50 | Emergency (ER) | payer MEDICARE, OTHER ==
[~2023-12-10] VITALS: Ht 157.4 cm; Wt 105.2 kg
[~2023-12-10 16:50] MED LIST changes: -PREDNISONE20 M1 PO
[2023-12-10 17:36] LABS: HEMATOCRIT 30.1 % (37.0-47.0); MEAN CELL VOLUME 109.1 fl (81.0-99.0); MEAN CORPUSCULAR HGB 34.8 pg (27.0-31.0); MEAN CORPUSCULAR HGB CONC 31.9 g/dl (33.0-37.0); MEAN PLATELET VOLUME 10.1 fl (9.6-12.3); NUCLEATED RED BLOOD CELL 0.1 10*3/uL (0.0-0.0); NUCLEATED RED BLOOD CELL 1.1 % (0.0-0.0); PLATELET COUNT AUTOMATED 176 10*3/uL (130-400); RED BLOOD COUNT 2.76 10*6/uL (4.10-5.10); RED CELL DISTRI WIDTH 15.3 % (0-14.5)
[2023-12-10 17:54] LABS: POTASSIUM 3.3 mmol/L (3.4-5.1)
[2023-12-10 18:16] LABS: MANUAL DIFF REFLEX YES
[2023-12-10 18:40] LABS: ATYPICAL LYMPHS 3 % (0-0); BASOPHILS 1 % (0-1); TOTAL CELLS COUNTED 100 #CELLS
[2023-12-10 18:41] LABS: OVALOCYTES FEW; PLATELET SUFFICIENCY NORMAL (NORMAL)
[2023-12-10] MEDS ORDERED: methylPREDNISolone sod succ 125 MG VIAL IM ONE (21:40)
[2023-12-10] MEDS ORDERED: PREDNISONE20 M1 PO (21:45)
== END 2023-12-10 21:55 | disposition home or self-care (01) ==
LOC: ED 16:50
PROVIDERS: Student in an Organized Health Care Education/Training Program
DX: J40 Bronchitis, not specified as acute or chronic (principal); I71.40 Abdominal aortic aneurysm, without rupture, unspecified; E87.6 Hypokalemia; D53.9 Nutritional anemia, unspecified; N18.32 Chronic kidney disease, stage 3b; I25.2 Old myocardial infarction; Z88.0 Allergy status to penicillin; Z88.2 Allergy status to sulfonamides; Z88.4 Allergy status to anesthetic agent; Z88.1 Allergy status to other antibiotic agents; Z79.899 Other long term (current) drug therapy; Z79.82 Long term (current) use of aspirin; Z95.5 Presence of coronary angioplasty implant and graft; Z87.891 Personal history of nicotine dependence

== ENCOUNTER → 2024-05-16 | Outpatient (CLI) | payer MEDICARE, OTHER ==
[~2024-05-16] MED LIST changes: +PREDNISONE20 M1 PO
[2024-05-16 14:11] LABS: HEMATOCRIT 31.6 % (37.0-47.0); MANUAL DIFF REFLEX YES; MEAN CELL VOLUME 110.9 fl (81.0-99.0); MEAN CORPUSCULAR HGB 35.8 pg (27.0-31.0); MEAN CORPUSCULAR HGB CONC 32.3 g/dl (33.0-37.0); MEAN PLATELET VOLUME 9.7 fl (9.6-12.3); NUCLEATED RED BLOOD CELL 0.4 % (0.0-0.0); PLATELET COUNT AUTOMATED 134 10*3/uL (130-400); RED BLOOD COUNT 2.85 10*6/uL (4.10-5.10); RETICULOCYTE % 2.35 % (0.50-2.50); WHITE BLOOD COUNT 5.2 10*3/uL (4.8-10.8)
[2024-05-16 14:34] LABS: POTASSIUM 4.1 mmol/L (3.4-5.1)
[2024-05-16 14:37] LABS: BASOPHILS 1 % (0-1); PLATELET SUFFICIENCY NORMAL (NORMAL); TOTAL CELLS COUNTED 100 #CELLS
[2024-05-16 14:38] LABS: OVALOCYTES FEW; POLYCHROMASIA SLIGHT; STOMATOCYTE FEW
[2024-05-17 07:07] LABS: TOTAL PROTEIN, SERUM 6.5 g/dL (6.0-8.5)
[2024-05-17 10:07] LABS: HAPTOGLOBIN 107 mg/dL (42-346); IMMUNOGLOBULIN G, QNT 966 mg/dL (586-1602); IMMUNOGLOBULIN M, QNT 24 mg/dL (26-217)
== END | disposition home or self-care (01) ==
LOC: LAB 00:32
PROVIDERS: ATTEND Physician Assistant Medical
DX: D64.9 Anemia, unspecified (principal)

== ENCOUNTER → 2025-05-22 | Outpatient (CLI) | payer MEDICARE, OTHER | END | disposition home or self-care (01) | LOC: RAD 00:44 | PROVIDERS: ATTEND Nurse Practitioner Primary Care | DX: M81.0 Age-related osteoporosis without current pathological fracture (principal); Z78.0 Asymptomatic menopausal state ==

== ENCOUNTER → 2025-09-02 | Outpatient (CLI) | payer MEDICARE, OTHER | END | disposition home or self-care (01) | LOC: LAB 13:30 → EDSTATUS 13:32 → LAB 14:14 | PROVIDERS: ATTEND Internal Medicine Critical Care Medicine | DX: G47.33 Obstructive sleep apnea (adult) (pediatric) (principal); J44.9 Chronic obstructive pulmonary disease, unspecified; G25.81 Restless legs syndrome; J96.11 Chronic respiratory failure with hypoxia; Z87.891 Personal history of nicotine dependence; Z99.81 Dependence on supplemental oxygen; Z68.41 Body mass index [BMI] 40.0-44.9, adult; T17.998A Other foreign object in respiratory tract, part unspecified causing other injury, initial encounter; R53.83 Other fatigue; Z86.2 Personal history of diseases of the blood and blood-forming organs and certain disorders involving the immune mechanism ==